=== PATIENT | female | born 1995 | race American Indian/Alaskan Native ===

== ENCOUNTER 2018-01-08 00:02 | Emergency (ER) | payer SELFPAY ==
[2018-01-08 00:15] VITALS: BP 113/73
[2018-01-08] MEDS ORDERED: NACL 0.9% 1000 ML 1,000 ML IV ONE (00:59)
[2018-01-08 01:16] LABS: Basophils % (Auto) 0.8 % (0.0-1.8); Eosinophils # (Auto) 0.1 K/mm3 (0.0-0.4); Eosinophils % (Auto) 1.5 % (0.0-4.3); Hematocrit 37.9 % (30.3-42.9); Hemoglobin 12.7 gm/dl (10.1-14.3); Lymphocytes # (Auto) 1.7 K/mm3 (1.2-5.4); Lymphocytes % (Auto) 28.6 % (13.4-35.0); Mean Corpuscular HGB Conc 33 % (30-34); Mean Corpuscular Hemoglobin 30 pg (28-32); Mean Corpuscular Volume 91 fl (79-97); Monocytes # (Auto) 0.6 K/mm3 (0.0-0.8); Monocytes % (Auto) 9.2 % (0.0-7.3); Platelet Count 236 K/mm3 (140-440); Red Blood Count 4.19 M/mm3 (3.65-5.03); Red Cell Distribution Width 13.2 % (13.2-15.2)
[2018-01-08 01:33] LABS: Alanine Aminotransferase 9 units/L (7-56); Albumin 4.7 g/dL (3.9-5); BUN/Creatinine Ratio 9; Blood Urea Nitrogen 7 mg/dL (7-17); Calcium 9.5 mg/dL (8.4-10.2); Hemolysis Index 3
[2018-01-08 02:51] LABS: Bilirubin,Urine NEG (Negative); Blood,Urine NEG (Negative); Color,Urine Yellow (Yellow); Mucus,Urine FEW /HPF; Protein,Urine <15 mg/dL mg/dL (Negative)
[2018-01-08] MEDS ORDERED: MOTRIN PO ONE (05:47)
[2018-01-08] MEDS ORDERED: TYLENOL PO ONE (05:47)
--- NOTE | 2018-01-08 06:00 | Emergency Department Report ---
ED General Adult HPI - General Chief complaint: Abdominal Pain Stated complaint: ABD PAIN Time Seen by Provider: 01/08/18 05:54 Source: patient Mode of arrival: Ambulatory Limitations: No Limitations - History of Present Illness Initial comments: 2 days of bilateral lower abd pain that is intermittent, not affected by food. Nonradiating. No urinary symptoms. Has started light spotting 24 hours ago. Her LMP was 12/23/17. Has taken tylenol with improvement of pain. Denies N/V/D. No h/ o abd surgeries. - Related Data Allergies Allergy/AdvReac Type Severity Reaction Status Date / Time No Known Allergies Allergy Unverified 01/08/18 00:55 ED Review of Systems ROS: Stated complaint: ABD PAIN Other details as noted in HPI Comment: All other systems reviewed and negative Gastrointestinal: abdominal pain Genitourinary: abnormal menses ED Past Medical Hx - Past Medical History Previous Medical History?: Yes Additional medical history: ovarian cyst - Surgical History Past Surgical History?: No - Social History Smoking Status: Never Smoker Substance Use Type: None ED Physical Exam - General Limitations: No Limitations General appearance: alert, in no apparent distress - Head Head exam: Present: atraumatic, normocephalic - Eye Eye exam: Present: normal appearance - ENT ENT exam: Present: mucous membranes moist - Neck Neck exam: Present: normal inspection - Respiratory Respiratory exam: Present: normal lung sounds bilaterally. Absent: respiratory distress - Cardiovascular Cardiovascular Exam: Present: regular rate, normal rhythm. Absent: systolic murmur, diastolic murmur, rubs, gallop - GI/Abdominal GI/Abdominal exam: Present: soft, tenderness (mild RLQ, LLQ), normal bowel sounds - Extremities Exam Extremities exam: Present: normal inspection - Back Exam Back exam: Present: normal inspection - Neurological Exam Neurological exam: Present: alert, oriented X3 - Psychiatric Psychiatric exam: Present: normal affect, normal mood - Skin Skin exam: Present: warm, dry, intact, normal color. Absent: rash ED Course Vital Signs 01/08/18 00:08 Temperature 99.3 F Pulse Rate 78 Respiratory 16 Rate Blood Pressure 113/73 O2 Sat by Pulse 98 Oximetry ED Medical Decision Making - Lab Data Result diagrams: 01/08/18 01:06 01/08/18 01:06 - Medical Decision Making 22 yo female with no sig pmhx that p/w abd pain and light vaginal spotting. VSS. Pt is asleep when I walked in the room. Labs and ua are unremarkable. Likely pt is having metrorrhagia. She will take motrin/tylenol for pain control and follow up with her [employer] for further management. She has no concerns for STDs. 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 - Differential Diagnosis cervicitis, pid, dysmenorrhea, metrorrhagia, uti, miscarriage, ectopic Critical care attestation.: If time is entered above; I have spent that time in minutes in the direct care of this critically ill patient, excluding procedure time. ED Disposition Clinical Impression: Metrorrhagia, Abdominal pain Disposition: TO HOME OR SELFCARE Is pt being admited?: No Does the pt Need Aspirin: No Condition: Stable Instructions: Abdominal Pain (ED) Additional Instructions: Please follow up with your [employer] for further evaluation of your vaginal spotting. You can take 800 mg motrin and/or 975 mg tylenol every 6 hours as needed for your abdominal pain. Referrals: ANDREWS YANEZ MD [Staff Physician] - 3-5 Days
== END 2018-01-08 06:41 | disposition home or self-care (01) ==
LOC: ED 00:02
DX: N92.0 Excessive and frequent menstruation with regular cycle (principal); R10.31 Right lower quadrant pain; R10.32 Left lower quadrant pain
CPT/HCPCS: 36415; 80053; 81001; 84703; 85025; 99283

== ENCOUNTER 2019-01-15 14:37 | Emergency (ER) | payer OTHER ==
[2019-01-15 15:15] VITALS: BP 125/83
[2019-01-15] MEDS ORDERED: NORCO 5/325 PO ONE (15:15)
--- NOTE | 2019-01-15 15:17 | Emergency Department Report ---
Chief Complaint: Dental/Oral Stated Complaint: TOOTHACHE Time Seen by Provider: 01/15/19 15:13 - HPI History of Present Illness: This is a 23-year-old female that presents to the ER left upper and lower dental pain x 2 days. Patient is well in appearance with no signs of distress. Normal vitals. Patient reports pain to #2 & #30 for 2 weeks and worsening over the past 2 days. She is currently taking NSAIDs. She denies facial swelling, fever, chills, headache, nausea, vomiting, chest pain or SOB. Denies follow up with dentist. - ROS Review of Systems: HEENT: Dental pain - Exam Vital Signs: Vital Signs 01/15/19 15:13 Temperature 98.9 F Pulse Rate 88 Respiratory 16 Rate Blood Pressure 125/83 [Left] O2 Sat by Pulse 98 Oximetry Physical Exam: GENERAL APPEARANCE: The patient is a 23-year-old well-developed, well-nourished female in no acute distress. HEENT: Dental caries to #2 & #30 with gingival swelling around tooth, ten derness, no induration. CHEST: Symmetric. Nontender to palpation. LUNGS: Breath sounds are equal and clear bilaterally. No wheezes, rhonchi, or rales. HEART: Regular rate and rhythm with normal S1 and S2. No murmurs, gallops, or rubs. ABDOMEN: Soft, flat, and benign. No mass, tenderness, guarding, or rebound. No organomegaly or hernia. Bowel sounds are present. No CVA tenderness or flank mass. EXTREMITIES: No cyanosis, clubbing, or edema. PSYCHIATRIC: The patient is awake, alert, and oriented x3. Recent and remote memory is intact. Appropriate mood and affect. SKIN: No rash. Warm, dry, and well perfused. Good turgor. MSE screening note: Focused history and physical exam performed. Due to findings the following was ordered: ED Medical Decision Making - Medical Decision Making Patient is stable and was examined by me. No acute signs of distress noted. Reports dental pain for 2 weeks worsening x 2 days. This is a non-emergent complaint. Start amoxicillin, Tylenol #3, and Naprosyn. Given list of emergency dental clinics for follow up. Patient agree to discharge treatment plan of care. No further questions noted by the patient. Patient discharged home stable. 03/17/2018 1 03/17/2018 HYDROCODONE-ACETAMIN 5-325 MG 20.0 3 DE KELBY [id number] BEAUGR ([id number]) 0 33.33 MME Comm Ins [place] ED Disposition for MSE Clinical Impression: Toothache, Dental caries Disposition: TO HOME OR SELFCARE Is pt being admited?: No Does the pt Need Aspirin: No Condition: Stable Instructions: Dental Caries (ED), Toothache (ED) Additional Instructions: Take prescribed pain medication every 6 hours for pain management. Follow up with dentist from the referrals list below. Prescriptions: Naproxen [Naprosyn] 500 mg PO BID PRN #20 tablet PRN Reason: Pain , Severe (7-10) Amoxicillin [Trimox CAP] 500 mg PO Q8H #21 capsule Acetaminophen/Codeine [Tylenol /Codeine # 3 tab] 1 tab PO Q6H PRN #12 tab PRN Reason: Pain , Severe (7-10) Referrals: [facility] [Outside] - 3-5 Days [facility] [Outside] - 3-5 Days [facility] [Outside] - 3-5 Days [facility] [Outside] - 3-5 Days Time of Disposition: 15:25
== END 2019-01-15 15:41 | disposition home or self-care (01) ==
LOC: ED 14:37
DX: K02.9 Dental caries, unspecified (principal)